=== PATIENT | female | born 1975 | race Caucasian/White ===

== ENCOUNTER → 2020-10-07 | Outpatient (CLI) | payer OTHER ==
[~2020-10-07] MED LIST: ALLEGRA180 MG PO; DOXYCYCLINE MO100 MG PO; KEFLEX500 MG PO; MOTRIN800 MG PO; PHENERGAN W/DM120 ML PO; PREDNICOT20 MG PO; ZITHROMAX250 MG PO; ZYRTEC10 MG PO
== END | disposition home or self-care (01) ==
LOC: COVID19 03:08
PROVIDERS: ATTEND Family Medicine
DX: R50.9 Fever, unspecified (principal); Z20.828 Contact with and (suspected) exposure to other viral communicable diseases